=== PATIENT | female | born 1950 | race Caucasian/White ===

== ENCOUNTER 2018-10-03 08:56 | Outpatient (CLI) | payer BC ==
[~2018-10-03 08:56] MED LIST: ASPI81TA52 PO; CHOL100010 PO; CYAN100061 IM; DEXL30CA3 PO; MULT-1074 PO; POTA99TA15 PO; SYN0.1T PO; TRIA1CAP6 PO; VALS160T2 PO; [UNRECOGNIZED DRUG - CODE] PO
[2018-10-03 09:21] LABS: EOSINOPHILS # (AUTO) 0.3 X10'3 (0-0.9); HEMOGLOBIN 12.3 g/dl (12.0-16.0); WHITE BLOOD COUNT 8.1 X10'3 (4.5-11.0)
[2018-10-03 09:23] LABS: BASOPHILS % (AUTO) 0.3 % (0-1); EOSINOPHILS % (AUTO) 3.6 % (0-6); HEMATOCRIT 36.6 % (35.0-45.0); LYMPHOCYTES % (AUTO) 12.7 % (21-51); MEAN CORPUSCULAR HGB CONC 33.6 g/dL (33.0-36.5); MEAN CORPUSCULAR VOLUME 98.2 FL (78-98); MEAN PLATELET VOLUME 7.4 FL (7.4-10.4); MONOCYTES # (AUTO) 0.7 X10'3 (0-0.9); MONOCYTES % (AUTO) 8.9 % (2-12); NEUTROPHILS % (AUTO) 74.5 % (42-75); PLATELET COUNT 297 X10'3 (140-440); RED BLOOD COUNT 3.73 X10'6 (4.20-5.60); RED CELL DISTRIBUTION WIDTH 13.2 % (11.5-14.5)
[2018-10-03 09:34] LABS: ALANINE AMINOTRANSFERASE 22 U/L (12-78); ALBUMIN 3.3 G/DL (3.4-5.0); ALBUMIN/GLOBULIN RATIO 0.8 (1.1-1.5); ALKALINE PHOSPHATASE 119 IU/L (46-116); ANION GAP 9 (8-16); ASPARTATE AMINO TRANSFERASE 26 U/L (10-37); BILIRUBIN,TOTAL 0.3 MG/DL (0.1-1.0); BLOOD UREA NITROGEN 20 MG/DL (7-18); BUN/CREATININE RATIO 17.9 (6.6-38.0); CALCIUM 9.1 MG/DL (8.5-10.1); CHLORIDE 104 MMOL/L (99-107); CREATININE 1.12 MG/DL (0.40-0.90); GLUCOSE 85 MG/DL (70-104); POTASSIUM 3.7 MMOL/L (3.5-5.1); SODIUM 140 MMOL/L (135-145); TOTAL CARBON DIOXIDE 26.9 MMOL/L (24-32); TOTAL PROTEIN 7.5 G/DL (6.4-8.2); eGFR 48 ML/MIN
[2018-10-03 09:35] LABS: PARTIAL THROMBOPLASTIN TIME 28 SECONDS (22-32)
== END 2018-10-03 23:59 | disposition home or self-care (01) ==
LOC: LAB 08:56
PROVIDERS: ATTEND Otolaryngology
DX: D69.1 Qualitative platelet defects (principal)
CPT/HCPCS: 36415; 80053; 85025; 85576; 85610; 85730

== ENCOUNTER 2019-08-13 09:54 | Outpatient (CLI) | payer BC ==
[~2019-08-13] VITALS: Ht 154.9 cm; Wt 63.0 kg
[2019-08-13 11:11] LABS: BASOPHILS % (AUTO) 0.2 % (0-1); EOSINOPHILS # (AUTO) 0.1 X10'3 (0-0.9); EOSINOPHILS % (AUTO) 0.8 % (0-6); LYMPHOCYTES # (AUTO) 0.4 X10'3 (1.1-4.8); LYMPHOCYTES % (AUTO) 6.4 % (21-51); MEAN CORPUSCULAR HEMOGLOBIN 32.8 PG (27.0-31.0); MEAN CORPUSCULAR VOLUME 96.3 FL (78-98); MEAN PLATELET VOLUME 6.7 FL (7.4-10.4); MONOCYTES # (AUTO) 0.9 X10'3 (0-0.9); MONOCYTES % (AUTO) 12.9 % (2-12); NEUTROPHILS # (AUTO) 5.6 X10'3 (1.8-7.7); NEUTROPHILS % (AUTO) 79.7 % (42-75); PRE OP HEMATOCRIT 32.3 % (35.0-45.0); PRE OP PLATELET COUNT 257 X10'3 (140-440); RED BLOOD COUNT 3.35 X10'6 (4.20-5.60)
[2019-08-13 11:16] LABS: PRE OP PROTIME 10.2 SECONDS (9.0-12.0)
[2019-08-13 11:18] LABS: ALBUMIN 3.1 G/DL (3.4-5.0); ALBUMIN/GLOBULIN RATIO 0.9 (1.1-1.5); ALKALINE PHOSPHATASE 91 IU/L (46-116); BLOOD UREA NITROGEN 37 MG/DL (7-18); BUN/CREATININE RATIO 30.1 (6.6-38.0); CALCIUM 8.1 MG/DL (8.5-10.1); CHLORIDE 105 MMOL/L (99-107); CREATININE 1.23 MG/DL (0.40-0.90); PRE OP ALT 25 U/L (30-65); PRE OP ANION GAP 9 (8-16); PRE OP AST 26 U/L (10-37); PRE OP BILIRUB, TOTAL 0.2 MG/DL (0.0-1.0); PRE OP GLUCOSE 71 MG/DL (70-104); PRE OP POTASSIUM 4.4 MMOL/L (3.4-5.1); PRE OP SODIUM 141 MMOL/L (135-145); TOTAL PROTEIN 6.7 G/DL (6.4-8.2); eGFR 43 ML/MIN
[2019-08-17] MEDS ORDERED: ringers solution, lacted 1,000 ML IV SCH (05:00)
[2019-08-17] MEDS ORDERED: famotidine 20mg tablet PO ONE (05:30)
== END 2019-08-13 23:59 | disposition home or self-care (01) ==
LOC: PRE-OP 09:54 → EDSTATUS 08-17 10:15
PROVIDERS: ATTEND Otolaryngology
DX: Z01.812 Encounter for preprocedural laboratory examination (principal); J32.2 Chronic ethmoidal sinusitis; J32.1 Chronic frontal sinusitis; J34.3 Hypertrophy of nasal turbinates; R51 Headache; I10 Essential (primary) hypertension; E03.9 Hypothyroidism, unspecified; I49.9 Cardiac arrhythmia, unspecified
CPT/HCPCS: 36415; 80053; 85025; 85610; 85730; 93005; J7120

== ENCOUNTER 2020-01-05 13:10 | Outpatient (CLI) | payer BC ==
[~2020-01-05] VITALS: Ht 157.5 cm; Wt 65.3 kg
[~2020-01-05 13:10] MED LIST changes: -ASPI81TA52 PO; -CHOL100010 PO; -CYAN100061 IM; -DEXL30CA3 PO; -POTA99TA15 PO; -[UNRECOGNIZED DRUG - CODE] PO
[2020-01-05] MEDS ORDERED: CHOL100025 PO (14:07)
[2020-01-05] MEDS ORDERED: ESTR0.6261 PO (14:07)
[2020-01-05] MEDS ORDERED: SUCR1TAB PO (14:07)
[2020-01-05] MEDS ORDERED: DEXL60CA3 PO (14:07)
[2020-01-05] MEDS ORDERED: POTA99TA21 PO (14:07)
[2020-01-05] MEDS ORDERED: ASPI-1071 PO (14:07)
[2020-01-05] MEDS ORDERED: CITA-311 PO (14:07)
[2020-01-05 14:39] LABS: BASOPHILS % (AUTO) 0.4 % (0-1); EOSINOPHILS # (AUTO) 0.1 X10'3 (0-0.9); LYMPHOCYTES # (AUTO) 0.9 X10'3 (1.1-4.8); LYMPHOCYTES % (AUTO) 12.4 % (21-51); MEAN CORPUSCULAR HEMOGLOBIN 31.9 PG (27.0-31.0); MEAN CORPUSCULAR HGB CONC 33.5 g/dL (33.0-36.5); MEAN CORPUSCULAR VOLUME 95.5 FL (78-98); MEAN PLATELET VOLUME 7.1 FL (7.4-10.4); MONOCYTES # (AUTO) 0.6 X10'3 (0-0.9); MONOCYTES % (AUTO) 8.3 % (2-12); NEUTROPHILS # (AUTO) 5.6 X10'3 (1.8-7.7); NEUTROPHILS % (AUTO) 77.9 % (42-75); PRE OP HEMATOCRIT 34.3 % (35.0-45.0); PRE OP HEMOGLOBIN 11.5 g/dL (12.0-16.0); PRE OP PLATELET COUNT 230 X10'3 (140-440); RED BLOOD COUNT 3.59 X10'6 (4.20-5.60)
[2020-01-05 14:45] LABS: PRE OP PROTIME 10.6 SECONDS (9.0-12.0)
[2020-01-05 14:57] LABS: ALBUMIN 3.4 G/DL (3.4-5.0); ALBUMIN/GLOBULIN RATIO 0.9 (1.1-1.5); ALKALINE PHOSPHATASE 122 IU/L (46-116); BLOOD UREA NITROGEN 22 MG/DL (7-18); BUN/CREATININE RATIO 16.9 (6.6-38.0); CALCIUM 8.8 MG/DL (8.5-10.1); CHLORIDE 94 MMOL/L (99-107); PRE OP ALT 30 U/L (30-65); PRE OP ANION GAP 6 (8-16); PRE OP AST 43 U/L (10-37); PRE OP BILIRUB, TOTAL 0.6 MG/DL (0.0-1.0); PRE OP GLUCOSE 96 MG/DL (70-104); PRE OP POTASSIUM 4.7 MMOL/L (3.4-5.1); TOTAL CARBON DIOXIDE 29.5 MMOL/L (24-32); TOTAL PROTEIN 7.3 G/DL (6.4-8.2); eGFR 40 ML/MIN
[2020-01-05 14:58] LABS: PRE OP SODIUM 129 MMOL/L (135-145)
[2020-01-12] MEDS ORDERED: ringers solution, lacted 1,000 ML IV SCH (05:00)
[2020-01-12] MEDS ORDERED: oxymetazoline 15 ML nasal spray NS PRN (05:30)
[2020-01-12] MEDS ORDERED: famotidine 20mg tablet PO ONE (05:30)
== END 2020-01-05 23:59 | disposition home or self-care (01) ==
LOC: PRE-OP 13:10 → EDSTATUS 01-12 09:30
PROVIDERS: ATTEND Otolaryngology
DX: J32.8 Other chronic sinusitis (principal); Z53.09 Procedure and treatment not carried out because of other contraindication; Z11.59 Encounter for screening for other viral diseases; I48.91 Unspecified atrial fibrillation; E03.9 Hypothyroidism, unspecified; K21.9 Gastro-esophageal reflux disease without esophagitis; I10 Essential (primary) hypertension
CPT/HCPCS: 36415; 80053; 84443; 85025; 85576; 85610; 85730; U0003

== ENCOUNTER 2020-03-02 12:02 | Outpatient (CLI) | payer BC ==
[~2020-03-02 12:02] MED LIST changes: +ASPI-1071 PO; +CHOL100025 PO; +CITA-311 PO; +DEXL60CA3 PO; +ESTR0.6261 PO; +POTA99TA21 PO; +SUCR1TAB PO
[2020-03-02] MEDS ORDERED: B12 INJECTION (14:17)
[2020-03-02 14:57] LABS: BASOPHILS % (AUTO) 0.3 % (0-1); EOSINOPHILS # (AUTO) 0.1 X10'3 (0-0.9); EOSINOPHILS % (AUTO) 1.4 % (0-6); LYMPHOCYTES # (AUTO) 0.6 X10'3 (1.1-4.8); LYMPHOCYTES % (AUTO) 9.2 % (21-51); MEAN CORPUSCULAR HEMOGLOBIN 33.4 PG (27.0-31.0); MEAN CORPUSCULAR VOLUME 98.2 FL (78-98); MEAN PLATELET VOLUME 7.1 FL (7.4-10.4); MONOCYTES # (AUTO) 0.7 X10'3 (0-0.9); MONOCYTES % (AUTO) 11.7 % (2-12); NEUTROPHILS # (AUTO) 4.9 X10'3 (1.8-7.7); NEUTROPHILS % (AUTO) 77.4 % (42-75); PRE OP HEMATOCRIT 31.2 % (35.0-45.0); PRE OP PLATELET COUNT 238 X10'3 (140-440); RED BLOOD COUNT 3.18 X10'6 (4.20-5.60); RED CELL DISTRIBUTION WIDTH 13.4 % (11.5-14.5)
[2020-03-02 15:01] LABS: PRE OP HEMOGLOBIN 10.6 g/dL (12.0-16.0)
[2020-03-02 15:07] LABS: PRE OP PROTIME 10.6 SECONDS (9.0-12.0)
[2020-03-02 15:22] LABS: ALBUMIN 3.4 G/DL (3.4-5.0); ALBUMIN/GLOBULIN RATIO 0.9 (1.1-1.5); ALKALINE PHOSPHATASE 127 IU/L (46-116); BLOOD UREA NITROGEN 18 MG/DL (7-18); BUN/CREATININE RATIO 16.8 (6.6-38.0); CALCIUM 8.9 MG/DL (8.5-10.1); CHLORIDE 95 MMOL/L (99-107); CREATININE 1.07 MG/DL (0.40-0.90); PRE OP ALT 39 U/L (30-65); PRE OP ANION GAP 6 (8-16); PRE OP AST 85 U/L (10-37); PRE OP BILIRUB, TOTAL 0.3 MG/DL (0.0-1.0); PRE OP GLUCOSE 89 MG/DL (70-104); TOTAL CARBON DIOXIDE 25.9 MMOL/L (24-32); eGFR 51 ML/MIN
[2020-03-02 15:25] LABS: PRE OP SODIUM 127 MMOL/L (135-145)
--- NOTE | 2020-03-02 15:55 | NUR ---
REPORTED NA TO MOOKIE. REPEAT DOS. PT INSTRUCTED TO SEE PCP IF POSSIBLE BEFORE SURG. INSTRUCTED TO CUT DOWN ON WATER INTAKE. ALSO EXPLAINED PER DR DAMICO, THERE'S A POSSIBILITY OF CX ON SURG DATE IF IT IS LOWER
[2020-03-08] MEDS ORDERED: ringers solution, lacted 1,000 ML IV SCH (05:00)
[2020-03-08] MEDS ORDERED: famotidine 20mg tablet PO ONE (05:30)
[2020-03-08] MEDS ORDERED: oxymetazoline 15 ML nasal spray NS ONE (10:35)
== END 2020-03-02 23:59 | disposition home or self-care (01) ==
LOC: PRE-OP 12:02 → EDSTATUS 03-08 10:45
PROVIDERS: ATTEND Otolaryngology
DX: Z01.812 Encounter for preprocedural laboratory examination (principal); Z20.828 Contact with and (suspected) exposure to other viral communicable diseases
CPT/HCPCS: 36415; 80053; 85025; 85576; 85610; 85730; 87635; 93005